=== PATIENT | male | born 1955 | race Caucasian/White ===

== ENCOUNTER → 2020-07-03 | Outpatient (CLI) | payer BC ==
--- NOTE | 2020-07-03 09:17 | RAD ---
EXAM: Abdomen sonogram. HISTORY: Elevated liver enzymes. TECHNIQUE: Sonographic imaging of the abdomen was performed. COMPARISON: None. FINDINGS: The liver is upper normal in size. There is hepatic steatosis. No focal hepatic lesion is s een. The gallbladder wall is upper normal in thickness. There is no convincing cholecystitis. The com mon bile duct is normal in caliber. The pancreas and inferior vena cava are partially obscured due to bowel gas. The right kidney is unremarkable. IMPRESSION: 1. Hepatic steatosis and upper normal liver size. 2. No acute sonographic finding. Electronically signed by: Lucretia Pope MD (07/03/2020 9:15 AM) [id number]
== END ==
LOC: US 07:47
PROVIDERS: ATTEND Family Medicine
DX: K76.0 Fatty (change of) liver, not elsewhere classified (principal); R94.5 Abnormal results of liver function studies
CPT/HCPCS: 76705